=== PATIENT | male | born 1990 | race Caucasian/White ===

== ENCOUNTER 2019-12-19 15:26 | Emergency (ER) | payer BC, SELFPAY ==
[2019-12-19 15:28] VITALS: BP 141/49; PULSE 88; RESP 16; TEMP 35.8; O2SAT 100; BMI 31.1
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
[2019-12-19 17:56] VITALS: BP 132/84; PULSE 66; RESP 15
== END 2019-12-19 17:56 | disposition home or self-care (01) ==
PROVIDERS: Emergency Provider Physician Assistant Medical; PCP Family Medicine
DX: S06.0X0A Concussion without loss of consciousness, initial encounter (principal); S29.012A Strain of muscle and tendon of back wall of thorax, initial encounter; M54.2 Cervicalgia; R11.0 Nausea; V53.5XXA Driver of pick-up truck or van injured in collision with car, pick-up truck or van in traffic accident, initial encounter; Y93.9 Activity, unspecified; Y92.9 Unspecified place or not applicable; Y99.9 Unspecified external cause status
CPT/HCPCS: 70450; 99282